=== PATIENT | male | born 1960 | race Caucasian/White ===

== ENCOUNTER 2017-06-24 01:13 | Emergency (ER) | payer OTHER ==
[~2017-06-24] VITALS: Ht 182.9 cm; Wt 81.6 kg
[2017-06-24] MEDS ORDERED: ZOLPIDEM (01:39)
[2017-06-24] MEDS ORDERED: SERTRALINE (01:39)
[2017-06-24] MEDS ORDERED: TETRACAINE HCL 0.5% OPHT DROP 2 ML BOTTLE OP ONE (01:45)
[2017-06-24] MEDS ORDERED: FLUORESCEIN SODIUM 1 MG STRIP OP ONE (01:45)
[2017-06-24] MEDS ORDERED: TETRACAINE HCL 0.5% OPHT DROP 2 ML BOTTLE ONE (01:57)
[2017-06-24] MEDS ORDERED: FLUORESCEIN SODIUM 1 MG STRIP ONE (02:00)
--- NOTE | 2017-06-24 02:41 | NUR ---
Patient discharged to home in stable conditon. Written and verbal after care instructions given. Patient verbalizes understanding of instructions.
== END 2017-06-24 02:43 | disposition home or self-care (01) ==
LOC: ER 01:13
DX: T15.92XA Foreign body on external eye, part unspecified, left eye, initial encounter (principal); Z88.0 Allergy status to penicillin; X58.XXXA Exposure to other specified factors, initial encounter; Y93.89 Activity, other specified; Y92.9 Unspecified place or not applicable; Y99.9 Unspecified external cause status
CPT/HCPCS: 99283; A4663